=== PATIENT | male | born 1985 | race Caucasian/White ===

== ENCOUNTER 2016-09-12 17:44 | Emergency (ER) | payer OTHER | END 2016-09-12 21:10 | disposition home or self-care (01) | LOC: D.ER 17:44 | DX: S00.93XA Contusion of unspecified part of head, initial encounter (principal); W20.8XXA Other cause of strike by thrown, projected or falling object, initial encounter; Y93.89 Activity, other specified; Y92.019 Unspecified place in single-family (private) house as the place of occurrence of the external cause; F17.200 Nicotine dependence, unspecified, uncomplicated ==

== ENCOUNTER → 2020-02-06 12:31 | Outpatient (CLI) | payer SELFPAY | END | disposition home or self-care (01) | LOC: D.LABREF 12:31 | PROVIDERS: ATTEND Orthopaedic Surgery | DX: M19.90 Unspecified osteoarthritis, unspecified site (principal); M25.552 Pain in left hip ==

== ENCOUNTER 2020-02-09 14:58 | Inpatient (IN) | payer BC, OTHER ==
[~2020-02-09] VITALS: Ht 180.3 cm; Wt 84.5 kg
[2020-02-24] MEDS ORDERED: GABAPENTIN300 MG PO (13:26)
[2020-02-24] MEDS ORDERED: VALTREX500 MG PO (13:26)
[2020-02-25 09:11] LABS: BASOPHILS 0.2 % (0-2); EOSINOPHILS 2.8 % (0-7); HEMATOCRIT 49.1 % (42.0-54.0); HEMOGLOBIN 16.9 g/dL (13.5-17.5); LYMPHOCYTES 30.7 % (15-50); MCH 32.4 pg (26.0-34.0); MCHC 34.4 g/dL (31.0-37.0); MCV 94.2 fL (80.0-100.0); MEAN PLATELET VOLUME 10.9 fL (7.4-10.4); MONOCYTES 5.4 % (2-11); NEUTROPHILS 60.9 % (40-80); PLATELET COUNT 145 10x3/uL (130-400); RBC 5.21 10x6/uL (4.20-6.10); RDW 13.4 % (11.5-14.5)
[2020-02-25 09:17] LABS: ANION GAP 8.3 mmol/L (8-16); CALCIUM 8.2 mg/dL (8.5-10.1); CREATININE - SERUM 1.6 mg/dL (0.6-1.3); POTASSIUM - SERUM 4.3 mmol/L (3.5-5.1)
[2020-02-25 09:20] LABS: APTT 26.3 SECONDS (22.8-39.4); INR 1.09 (0.85-1.17); PROTIME 14.1 SECONDS (11.6-15.0)
[2020-02-25 10:27] LABS: BILIRUBIN NEGATIVE (NEGATIVE); GLUCOSE NEGATIVE (NEGATIVE); KETONE NEGATIVE (NEGATIVE); NITRITE NEGATIVE (NEGATIVE); SPECIFIC GRAVITY 1.015 (1.005-1.020); UROBILINOGEN NORMAL (NORMAL)
[2020-03-01] VITALS (7 sets, daily range): BP systolic 107–125; BP diastolic 43–75; Ht 180.3 cm; Wt 84.5 kg
--- NOTE | 2020-03-01 14:40 | NUR ---
RECEIVED TO ROOM 1211 VIA BED FROM PACU. ALERT AND ORIENTED X3. NO C/O AT THIS TIME. SKIN IS INTACT WITHOUT REDNESS EXCEPT INCISION TO LEFT HIP WHICH HAS A DRY INTACT DRESSING IN PLACE. JUSTIN PATENT WITH CLEAR YELLOW URINE. DENIES NEEDS. AT BEDSIDE.
--- NOTE | 2020-03-01 18:00 | NUR ---
ATE MOST OF SUPPER. DENIES NEEDS. NO CHANGES NOTED. AT BEDSIDE. JUSTIN WITH CLEAR YELLOW URINE.
--- NOTE | 2020-03-01 19:25 | NUR ---
PATIENT RESTING IN BED WITH NO S/S OF DISTRESS. VSS. PATIENT DENIES NEEDS AT THIS TIME. BED IN LOWEST POSITION AND CALL LIGHT WITHIN REACH. ENCOURAGED THE PATIENT TO CALL IF HE HAS NEEDS. WILL CONTINUE TO MONITOR.
[2020-03-02 03:18] VITALS: BP 113/69
[2020-03-02 07:07] LABS: BASOPHILS 0 % (0-2); EOSINOPHILS 0.1 % (0-7); HEMATOCRIT 41.7 % (42.0-54.0); HEMOGLOBIN 14.3 g/dL (13.5-17.5); IMMATURE GRANULOCYTES 0.2 % (0-5); LYMPHOCYTES 6.4 % (15-50); MCH 32.1 pg (26.0-34.0); MCHC 34.3 g/dL (31.0-37.0); MCV 93.7 fL (80.0-100.0); MEAN PLATELET VOLUME 10.5 fL (7.4-10.4); MONOCYTES 5.1 % (2-11); NEUTROPHILS 88.2 % (40-80); PLATELET COUNT 126 10x3/uL (130-400); RBC 4.45 10x6/uL (4.20-6.10); RDW 13.5 % (11.5-14.5); WBC 12.2 10x3/uL (4.8-10.8)
--- NOTE | 2020-03-02 07:15 | NUR ---
JUSTIN D/C WITH TIP INTACT WITHOUT DIFFICULTY. LUNGS ARE CLEAR BILATEARLLY , NO COUGH NOTED. REPORTED USING IS INSTRUCTED. SKIN IS INTACT WTIHOUT REDNESS EXCEPT INCISION TO LEFT HIP WHICH HAS A DRY INTACT DRESSING IN PLACE. IV TO RIGHT FOREARM IS PATENT WITHOUT REDNESS AT INSERTION SITE. ALERT AND ORIENTED X3. DENIES NEEDS. AT BEDSIDE.
[2020-03-02 07:16] LABS: ANION GAP 10.8 mmol/L (8-16); CALCIUM 7.8 mg/dL (8.5-10.1); CARBON DIOXIDE 30.2 mmol/L (21.0-32.0); CREATININE - SERUM 1.5 mg/dL (0.6-1.3)
[2020-03-02 07:29] VITALS: BP 137/58
--- NOTE | 2020-03-02 10:30 | NUR ---
AMBULATED IN HALLWAY WITH PT. INCISION TO LEFT HIP IS OOZING BLOOD. DRESSING CHANGED PER STAFF. WILL MONITOR.
--- NOTE | 2020-03-02 11:00 | NUR ---
UP TO BR WITH 'S ASSISTANCE. INCISION LINE IS OOZING BLOOD AGAIN. SPOKE WITH ELLEN HENSLEY APN. NEW ORDERS RECEIVED.
--- NOTE | 2020-03-02 11:45 | NUR ---
PROVENA WOUND VAC IN PLACE AT THIS TIME. DENIES NEEDS.
--- NOTE | 2020-03-02 12:37 | NUR ---
RIGHT HIP INCISION BLEEDING PER RN. ORTHO ORDER FOR PREVENA RECEIVED. CLEANSED, DRIED AND APPLIED SKIN PROTECTANT. THEN COVERED INCISION WITH PREVENA DRESSING. NEG PRESSURE ACHIEVED. PT TOLERATED WELL.
--- NOTE | 2020-03-02 13:41 | NUR ---
ATE ALL OF LUNCH TRAY. RESTING QUIETLY IN BED WITH WOUND VAC IN PLACE. REPORTS GOOD PAIN CONTROL WITH USE OF ASPHALT DISTRIBUTOR OPERATOR.
--- NOTE | 2020-03-02 15:51 | NUR ---
CRYING WITH PAIN. GIVEN BOLUS OF 0.4MG DILAUDID IV. ALSO PLACED HEAT PACKS ON AREA OF COMPLAINT. WILL MONITOR.
[2020-03-02 16:39] VITALS: BP 129/76
--- NOTE | 2020-03-02 19:34 | NUR ---
ATE ALL OF SUPPER. DENIES NEEDS. NO CHANGES NOTED.
[2020-03-02 20:00] VITALS: BP 125/67
--- NOTE | 2020-03-02 20:00 | NUR ---
ALERT RESTING IN BED, REPORTS GOOD PAIN RELIEF WITH LOCAL SALES MANAGER, DENIES NEEDS, SEE SHIFT ASSESSMENT, CALL LIGHT IN REACH
--- NOTE | 2020-03-02 20:50 | MORECARE ---
CASE MANAGEMENT DISCHARGE SUMMARY PATIENT: KRYSTINA YATES UNIT: [id number] ADM DATE: 03/01/20 AGE: 34 : 83 SEX: M ROOM/BED: D.1211 AUTHOR: YUNIOR VORA PHYSICIAN: REFERRING PHYSICIAN: MARILOU ROBERTO MD DATE OF SERVICE: 03/02/20 Discharge Plan Patient Name: KRYSTINA YATES Facility: [facility]:[place] : 1985 Planned Disposition: Anticipated Discharge Date: Discharge Date: Expected LOS: Initial Reviewer: [email or web address] Initial Review Date: 03/01/2020 Generated: 03/02/20 9:50 pm Comments DCP- Discharge Planning Updated by [email or web address]: Arabella Valencia on 03/02/20 7:[address] CM attempted to visit with patient regarding discharge planning / needs. Patient requested for patient to come back at a later time for assessment. Patient Name: KRYSTINA YATES Page [id number] at 2049 All edits/amendments must be made on the electronic document DICTATION DATE: 03/02/202049 SUPERVISOR MAINTENANCE: MATTEO 03/02/202049 RPT#: [id number] DC DATE: STATUS: ADM IN [facility] [address] [place] [address] END OF REPORT
[2020-03-03 05:30] VITALS: BP 123/67
[2020-03-03 08:02] VITALS: BP 113/61
[2020-03-03 08:10] LABS: BASOPHILS 0 % (0-2); EOSINOPHILS 0.7 % (0-7); HEMATOCRIT 35.6 % (42.0-54.0); IMMATURE GRANULOCYTES 0.1 % (0-5); LYMPHOCYTES 21.9 % (15-50); MCHC 33.7 g/dL (31.0-37.0); MCV 94.9 fL (80.0-100.0); MEAN PLATELET VOLUME 10.6 fL (7.4-10.4); MONOCYTES 9.9 % (2-11); NEUTROPHILS 67.4 % (40-80); PLATELET COUNT 104 10x3/uL (130-400); RBC 3.75 10x6/uL (4.20-6.10); RDW 13.9 % (11.5-14.5)
[2020-03-03 08:14] LABS: WBC 6.8 10x3/uL (4.8-10.8)
[2020-03-03 08:21] LABS: ANION GAP 6.5 mmol/L (8-16); CALCIUM 7.6 mg/dL (8.5-10.1); CARBON DIOXIDE 31.5 mmol/L (21.0-32.0); CREATININE - SERUM 1.3 mg/dL (0.6-1.3)
--- NOTE | 2020-03-03 09:14 | OP ---
PATIENT NAME: KRSYTINA YATES MEDICAL RECORD: [id number] :83 LOCATION:D.M3 D.1211 ADMISSION DATE:03/01/20 SURGEON: MARILOU ROBERTO MD DATE OF OPERATION: 03/01/2020 PREOPERATIVE DIAGNOSIS: Longstanding Perthes disease of bilateral hips, worse on the left. POSTOPERATIVE DIAGNOSIS: Longstanding Perthes disease of bilateral hips, worse on the left. PROCEDURE: Left total hip arthroplasty. SURGEON: Marilou Roberto MD FURNACE OPERATOR OIL OR GAS: YURI Espinoza and DARRIN Feliciano INTRAOPERATIVE COMPLICATIONS: None. SUMMARY OF PATHOLOGIC FINDINGS: The patient had a very large mushroom shaped head with excoriation of the entire head itself consistent with burn out Perthes. IMPLANTS USED: Tritanium II cluster hole shell, X3, 0-degree polyethylene insert, 36 alpha code F, size #6 Accolade II with a size 36 -5 Biolox head. ESTIMATED BLOOD LOSS: 150 cc. OPERATIVE SUMMARY IN DETAIL: After obtaining the appropriate preoperative orthopedic surgery consent as well as anesthetic consultation, evaluation and clearance, the patient was brought to the operating room and placed on the operating table in supine position. After general laryngeal mask airway was administered, the patient was placed in right lateral decubitus position. All pressure points well-padded to include down leg peroneal pad as well as axillary roll. The patient was held firmly to the operating table using the vacuum pack suction system. Left lower extremity and hip were then prepped and draped in routine sterile fashion. Curvilinear incision was made over the level of the greater trochanter, taken down with T band which was split in line with fibers of the IT band to reveal gluteus medius minimus. These were reflected anteriorly. The hip capsule was split in a T-type fashion. The hip was then dislocated. The very large patulous excoriated head was then noted. It took two cuts to cut and identify the patient's [place] femoral neck. Having completed this, attention was turned to the acetabulum. Labrectomy was then followed by serial and sequential reaming for a size 58 Tritanium cluster hole. This was put into place with good capture; however, 2 screws were also put into back it up and the polyethylene was snapped into place. Attention was then returned to the proximal femur where serial and sequential reaming and broaching were done for a size #6 Accolade II TMZF coated stem. This was put into place and trial was undertaken. It was felt that -5 was the best for leg length equality. In fact the left leg was lengthened slightly over the right leg as the right leg also has Perthes and will have to be replaced as well. Having completed this, radiographs were taken, this showed good position and placement of all components. Wound was then filled with a gram of vancomycin and a gram of tobramycin, hip capsule was closed with #2 Ethibond. Gluteus medius and minimus were then reapproximated transosseously to the lesser trochanter with #5 OPERATIVE REPORT [id number] KRYSTINA YATES. The IT band was then closed with 2-0 Ethibond followed in #1 Vicryl, 2-0 Vicryl, and skin howard. Sterile dressings were applied. The patient was awakened and taken to recovery in stable condition. All final needle and sponge counts were correct. TRANSINT:[id number] Voice Confirmation ID: [id number] DOCUMENT ID: [id number] FELISA DOYLE, MARILOU MCCARTHY at 0914 CC: [id number] DICTATION DATE: 03/02/20 1023 DOUGHNUT ICER: 03/02/20 2142 ADM IN [facility] [id number] [place] [address]
--- NOTE | 2020-03-03 10:50 | NUR ---
PT ALERT X 4. BREATH SOUNDS CLEAR BILAT. IV TO RIGHT FOREARM, PATENT, DRESSING CDI. BOWEL SOUNDS HYPOACTIVE X 4. PREVENA WOUND VAC IN PLACE TO LEFT HIP, BRUISING AND SLIGHT SWELLING AT INCISION SITE. PT REPORTING PAIN OF 10/10, TRAINING LEAD IN USE, MEDICATED FOR BREAK THROUGH PAIN ORDERED, WILL CONTINUE TO MONITOR. FAMILY AT BEDSIDE. BED LOW, CALL LIGHT IN REACH. NO OTHER NEEDS AT THIS TIME.
[2020-03-03 12:00] VITALS: BP 132/70
[2020-03-03 16:00] VITALS: BP 119/62
[2020-03-03 20:00] VITALS: BP 113/67; BP 126/63
--- NOTE | 2020-03-03 20:00 | NUR ---
ALERT RESTING IN BED, DENIES PAIN OR NEEDS AT THIS TIME, SEE SHIFT ASSESSMENT, CALL LIGHT IN REACH
[2020-03-04 04:00] VITALS: BP 119/64
[2020-03-04] MEDS ORDERED: DILAUDID4 MG PO (07:12)
[2020-03-04] MEDS ORDERED: SOMA350 MG PO (07:13)
[2020-03-04] MEDS ORDERED: ELIQUIS2.5 MG PO ×2 (07:13→07:40)
[2020-03-04 07:43] LABS: ANION GAP 7.1 mmol/L (8-16); CALCIUM 7.9 mg/dL (8.5-10.1); CARBON DIOXIDE 32.1 mmol/L (21.0-32.0); CREATININE - SERUM 1.5 mg/dL (0.6-1.3); POTASSIUM - SERUM 4.2 mmol/L (3.5-5.1)
[2020-03-04 07:52] LABS: BASOPHILS 0.1 % (0-2); EOSINOPHILS 2.1 % (0-7); HEMATOCRIT 34.2 % (42.0-54.0); HEMOGLOBIN 11.7 g/dL (13.5-17.5); LYMPHOCYTES 23.7 % (15-50); MCH 31.9 pg (26.0-34.0); MCHC 34.2 g/dL (31.0-37.0); MCV 93.2 fL (80.0-100.0); MEAN PLATELET VOLUME 10.1 fL (7.4-10.4); NEUTROPHILS 65.1 % (40-80); PLATELET COUNT 106 10x3/uL (130-400); RBC 3.67 10x6/uL (4.20-6.10); RDW 13.4 % (11.5-14.5); WBC 6.8 10x3/uL (4.8-10.8)
[2020-03-04 08:23] VITALS: BP 135/55
--- NOTE | 2020-03-04 09:14 | NUR ---
PT ALERT X 4. BREATH SOUNDS CLEAR BILAT. IV TO RIGHT FOREARM, SALINE LOCKED. WOUND VAC TO LEFT HIP, BRUISING. PT REPORTING PAIN OF 10/10, NO MEDICATIONS AVAILABLE AT THIS TIME, WILL CONTINUE TO MONITOR. FAMILY AT BEDSIDE. BED LOW, CALL LIGHT IN REACH. NO OTHER NEEDS AT THIS TIME.
--- NOTE | 2020-03-04 11:10 | MORECARE ---
CASE MANAGEMENT DISCHARGE SUMMARY PATIENT: KRYSTINA YATES UNIT: [id number] ADM DATE: 03/01/20 AGE: 34 : 83 SEX: M ROOM/BED: D.1211 AUTHOR: YUNIOR VORA PHYSICIAN: REFERRING PHYSICIAN: MARILOU ROBERTO MD DATE OF SERVICE: 03/04/20 Discharge Plan Patient Name: KRYSTINA YATES Facility: [facility]:[place] : 1985 Planned Disposition: Anticipated Discharge Date: Discharge Date: Expected LOS: Initial Reviewer: [email or web address] Initial Review Date: 03/01/2020 Generated: 03/04/20 12:09 pm Comments DCP- Discharge Planning Updated by [email or web address]: Arabella Valencia on 03/02/20 7:[address] CM attempted to visit with patient regarding discharge planning / needs. Patient requested for patient to come back at a later time for assessment. External Providers [facility] Next Contact Date: Service Request Date: Service Type: Resolution: Reviewer: Comments: Last DP export: 03/02/20 7:50 p Patient Name: KRYSTINA YATES Page [id number] at 1110 All edits/amendments must be made on the electronic document DICTATION DATE: 03/04/201108 CINDER WORKER: MATTEO 03/04/20 1109 RPT#: [id number] DC DATE: STATUS: ADM IN [facility] [address] [place] [address] END OF REPORT
--- NOTE | 2020-03-04 11:23 | MORECARE ---
CASE MANAGEMENT DISCHARGE SUMMARY PATIENT: KRYSTINA BRIGHT UNIT: [id number] ADM DATE: 03/01/20 AGE: 34 : 83 SEX: M ROOM/BED: D.1211 AUTHOR: DIONY,DOC PHYSICIAN: REFERRING PHYSICIAN: MARILOU ROBERTO MD DATE OF SERVICE: 03/04/20 Discharge Plan Patient Name: KRYSTINA BRIGHT Facility: [facility]:[place] : 1985 Planned Disposition: Outpatient PT\OT Anticipated Discharge Date: 03/04/20 Discharge Date: Expected LOS: 3 Initial Reviewer: [email or web address] Initial Review Date: 03/01/2020 Generated: 03/04/20 12:23 pm Comments DCP- Discharge Planning Updated by [email or web address]: Orly Chavarria on 03/04/20 10:[address] Patient Name: KRYSTINA BRIGHT Admission Status: Elective Accout number: [id number] Admission Date: 03-01-2020 : 1985 Admission Diagnosis:UNILATERAL PRIMARY OSTEOARTHRITIS, LEFT HIP Attending: MARILOU ROBERTO Current LOS: 3 Anticipated DC Date: 03-04-2020 Planned Disposition: Outpatient PT\OT Primary Insurance: [employer] OUT OF STATE Discharge Planning Comments: CM met with patient to discuss discharge planning / needs. Patient states his plan is to return to home where he lives with family and go to Outpatient Physical Therapy at [facility]. Patient signed DUC form. Denies any other DCP needs. Has a walker, BSC, and urinal. His fianc? Simba Collins, , will drive him home upon discharge. Patient states home environment is safe. CM called Aggie Feliz with [facility] Outpatient therapy with referral. Faxed records as requested. Patient's first appointment will be tomorrow at 14:30. He will need to arrive at registration at the front of the hospital at 14:00. CM instructed patient on this. He verbalized understanding and satisfaction. CM informed Cornelia, Environmental Protection Economist, of appointment and DCP. CM will continue to follow and assist as needed with DCP needs. Manager Steel: Orly Chavarria DCP- Discharge Planning Updated by [email or web address]: Arabella Valencia on 03/02/20 7:[address] CM attempted to visit with patient regarding discharge planning / needs. Patient requested for patient to come back at a later time for assessment. DCPIA - Discharge Planning Initial Assessment Updated by [email or web address]: Orly Chavarria on 03/04/20 11:15 am * Is the patient Alert and Oriented? Yes * How many steps to enter\exit or inside your home? 3 w/rail * PCP Dr Quintana * Pharmacy [facility] on [address] * Preadmission Environment Home with Family * ADLs Independent * Equipment Bedside Commode Walker * Other Equipment Urinal * List name and contact numbers for known caregivers / representatives who currently or will assist patient after discharge: Galilea Bright, Mother, Cinthia Shah?, * Verbal permission to speak to the caregivers and representatives has been obtained from the patient. Yes * Community resources currently utilized None * Additional services required to return to the preadmission environment? No * Can the patient safely return to the preadmission environment? Yes * Has this patient been hospitalized within the prior 30 days at any hospital? No Coverage Notice Reviewer: [id number] - Orly Chavarria Notice Issued Date-Time: 03/04/2020 11:00 Notice Type: Patient Choice Letter Notice Delivered To: Patient Relationship to Patient: Self Miniature Set Designer Name: Delivery Method: HAND - Hand Delivered Angelina Days: Prior Verbal Notification: Recipient Understood Notice: Yes Recipient Signature: Yes Med Rec Note Co-signed by Attending: Coverage Notice Comment: [facility] OPTHERAPY Last DP export: 03/04/20 10:10 a Patient Name: KRYSTINA BRIGHT Page 16511 at 1123 All edits/amendments must be made on the electronic document DICTATION DATE: 03/04/20 1123 SOLAR MAINTENANCE TECHNICIAN: MATTEO 03/04/20 1123 RPT#: [id number] DE DATE: STATUS: ADM IN [facility] [address] [facility] [place] [address] END OF REPORT
--- NOTE | 2020-03-04 12:37 | NUR ---
PT PAIN LEVEL INCREASE DUE TO REMOVAL OF WOUND VAC. DISCHARGE PAPERWORK SIGNED, ALL QUESTIONS ANSWERED. DRESSING CHANGED PER ORDERS, EDUCATED PT FAMILY OF PROCEDURE. IV TO RIGHT FOREARM DC'D, TIP INTACT. ESCORTED OUT VIA WHEELCHAIR.
--- NOTE | 2020-03-04 14:17 | MORECARE ---
CASE MANAGEMENT DISCHARGE SUMMARY PATIENT: KRYSTINA BRIGHT UNIT: [id number] ADM DATE: 03/01/20 AGE: 34 : 83 SEX: M ROOM/BED: D.1211 AUTHOR: DIONY,DOC PHYSICIAN: REFERRING PHYSICIAN: MARILOU ROBERTO MD DATE OF SERVICE: 03/04/20 Discharge Plan Patient Name: KRYSTINA BRIGHT Facility: [facility]:[place] : 1985 Planned Disposition: Outpatient PT\OT Anticipated Discharge Date: 03/04/20 Discharge Date: 03/04/2020 Expected LOS: 3 Initial Reviewer: [email or web address] Initial Review Date: 03/01/2020 Generated: 03/04/20 3:17 pm Comments DCP- Discharge Planning Updated by [email or web address]: Orly Chavarria on 03/04/20 10:[address] Patient Name: KRYSTINA BRIGHT Admission Status: Elective Accout number: [id number] Admission Date: 03-01-2020 : 1985 Admission Diagnosis:UNILATERAL PRIMARY OSTEOARTHRITIS, LEFT HIP Attending: MARILOU ROBERTO Current LOS: 3 Anticipated DC Date: 03-04-2020 Planned Disposition: Outpatient PT\OT Primary Insurance: [employer] OUT OF STATE Discharge Planning Comments: CM met with patient to discuss discharge planning / needs. Patient states his plan is to return to home where he lives with family and go to Outpatient Physical Therapy at [facility]. Patient signed DUC form. Denies any other DCP needs. Has a walker, BSC, and urinal. His fianc? Simba Collins, , will drive him home upon discharge. Patient states home environment is safe. CM called Aggie Felzi with [facility] Outpatient therapy with referral. Faxed records as requested. Patient's first appointment will be tomorrow at 14:30. He will need to arrive at registration at the front of the hospital at 14:00. CM instructed patient on this. He verbalized understanding and satisfaction. CM informed Cornelia, Model Builder, of appointment and DCP. CM will continue to follow and assist as needed with DCP needs. Case Advocate: Orly Chavarria DCP- Discharge Planning Updated by [email or web address]: Arabella Valencia on 03/02/20 7:[address] CM attempted to visit with patient regarding discharge planning / needs. Patient requested for patient to come back at a later time for assessment. DCPIA - Discharge Planning Initial Assessment Updated by [email or web address]: Orly Chavarria on 03/04/20 11:15 am * Is the patient Alert and Oriented? Yes * How many steps to enter\exit or inside your home? 3 w/rail * PCP Dr Quintana * Pharmacy [facility] on [address] * Preadmission Environment Home with Family * ADLs Independent * Equipment Bedside Commode Walker * Other Equipment Urinal * List name and contact numbers for known caregivers / representatives who currently or will assist patient after discharge: Galilea Bright, Mother, Cinthia Shah?, * Verbal permission to speak to the caregivers and representatives has been obtained from the patient. Yes * Community resources currently utilized None * Additional services required to return to the preadmission environment? No * Can the patient safely return to the preadmission environment? Yes * Has this patient been hospitalized within the prior 30 days at any hospital? No Coverage Notice Reviewer: [id number] - Orly Chavarria Notice Issued Date-Time: 03/04/2020 11:00 Notice Type: Patient Choice Letter Notice Delivered To: Patient Relationship to Patient: Self Fisher Eel Spear Name: Delivery Method: HAND - Hand Delivered Angelina Days: Prior Verbal Notification: Recipient Understood Notice: Yes Recipient Signature: Yes Med Rec Note Co-signed by Attending: Coverage Notice Comment: [facility] OPTHERAPY Last DP export: 03/04/20 10:23 a Patient Name: KRYSTINA BRIGHT Page [id number] at 1417 All edits/amendments must be made on the electronic document DICTATION DATE: 03/04/201416 OIL AND GAS RECRUITER: MATTEO 03/04/201416 RPT#: [id number] IN DATE:03/04/20 STATUS: DIS IN [facility] [address] [place] [address] END OF REPORT
== END 2020-03-04 13:07 | disposition home or self-care (01) | DRG 470 ==
LOC: D.SDCHOLD 03-01 08:50 → D.M3 03-01 08:50 → D.SDCHOLD 03-01 10:00 → D.M3 03-01 14:05 → D.SDCHOLD 03-01 14:10 → D.M3 03-04 13:07
PROVIDERS: Family Medicine; ADMIT Orthopaedic Surgery; ATTEND Orthopaedic Surgery
PROC: 0SRB0J9 Replacement of Left Hip Joint with Synthetic Substitute, Cemented, Open Approach (ICD-10-PCS; principal; 2020-03-01 11:15)
DX: M16.12 Unilateral primary osteoarthritis, left hip (principal); F17.200 Nicotine dependence, unspecified, uncomplicated

== ENCOUNTER 2020-03-07 14:52 | Emergency (ER) | payer BC, OTHER ==
[~2020-03-07] VITALS: Ht 180.3 cm; Wt 84.5 kg
[~2020-03-07 14:52] MED LIST: DILAUDID4 MG PO; ELIQUIS2.5 MG PO; GABAPENTIN300 MG PO; SOMA350 MG PO; VALTREX500 MG PO
[2020-03-07 15:08] VITALS: Ht 180.3 cm; Wt 84.5 kg
[2020-03-07 16:30] LABS: BASOPHILS 0.2 % (0-2); BILIRUBIN NEGATIVE (NEGATIVE); EOSINOPHILS 3.4 % (0-7); GLUCOSE NEGATIVE (NEGATIVE); HEMOGLOBIN 11.5 g/dL (13.5-17.5); IMMATURE GRANULOCYTES 0.2 % (0-5); KETONE NEGATIVE (NEGATIVE); LYMPHOCYTES 18.5 % (15-50); MCH 32.1 pg (26.0-34.0); MCHC 33.8 g/dL (31.0-37.0); MEAN PLATELET VOLUME 9.2 fL (7.4-10.4); MONOCYTES 9.7 % (2-11); NITRITE NEGATIVE (NEGATIVE); RBC 3.58 10x6/uL (4.20-6.10); RDW 13.5 % (11.5-14.5); SPECIFIC GRAVITY 1.015 (1.005-1.020); UROBILINOGEN NORMAL (NORMAL); WBC 6.1 10x3/uL (4.8-10.8)
[2020-03-07 16:32] LABS: PLATELET COUNT 175 10x3/uL (130-400)
[2020-03-07 17:07] LABS: ALBUMIN 3.4 g/dL (3.4-5.0); ANION GAP 5.8 mmol/L (8-16); BILIRUBIN - TOTAL 0.87 mg/dL (0.2-1.3); CALCIUM 9.2 mg/dL (8.5-10.1); CREATININE - SERUM 1.6 mg/dL (0.6-1.3); POTASSIUM - SERUM 3.8 mmol/L (3.5-5.1); PROTEIN - SERUM 7.4 g/dL (6.4-8.2)
[2020-03-07] MEDS ORDERED: SENNA LAXATIVE8.6 MG PO (17:43)
[2020-03-07 18:55] VITALS: BP 137/89
== END 2020-03-07 18:55 | disposition home or self-care (01) ==
LOC: D.ER 14:52
PROVIDERS: Family Medicine
DX: K59.03 Drug induced constipation (principal); T40.2X5A Adverse effect of other opioids, initial encounter; Y92.9 Unspecified place or not applicable; N17.9 Acute kidney failure, unspecified; M91.10 Juvenile osteochondrosis of head of femur [Legg-Calve-Perthes], unspecified leg; K21.9 Gastro-esophageal reflux disease without esophagitis

== ENCOUNTER → 2020-03-10 10:35 | Outpatient (CLI) | payer BC, OTHER ==
[2020-03-07 15:08] VITALS: BMI 26.0
[~2020-03-10 10:35] MED LIST changes: +SENNA LAXATIVE8.6 MG PO
== END | disposition home or self-care (01) ==
LOC: D.US 10:30
PROVIDERS: ATTEND Clinical Nurse Specialist Family Health
DX: R22.42 Localized swelling, mass and lump, left lower limb (principal)